=== PATIENT | female | born 1985 | race Caucasian/White ===

== ENCOUNTER 2022-08-07 14:45 | Inpatient (IN) | payer OTHER ==
[~2022-08-07] VITALS: Ht 160 cm; Wt 117.9 kg
[~2022-08-07 14:45] MED LIST: PRENATAL 19 TA1 EACH PO
== END 2022-08-10 16:16 | disposition home or self-care (01) | DRG 807 ==
LOC: LDR 14:45 → OB/GYN 16:26
PROVIDERS: ADMIT Specialist; ATTEND Specialist
PROC: 10E0XZZ Delivery of Products of Conception, External Approach (ICD-10-PCS; principal; 2022-08-07)
PROC: 4A1HXCZ Monitoring of Products of Conception, Cardiac Rate, External Approach (ICD-10-PCS; 2022-08-07)
PROC: 0UQG7ZZ Repair Vagina, Via Natural or Artificial Opening (ICD-10-PCS; 2022-08-07)
DX: O71.4 Obstetric high vaginal laceration alone (principal); Z37.0 Single live birth; Z3A.38 38 weeks gestation of pregnancy; Z20.822 Contact with and (suspected) exposure to COVID-19